=== PATIENT | female | born 1955 | race Caucasian/White ===

== ENCOUNTER → 2020-04-29 13:48 | Outpatient (CLI) | payer SELFPAY ==
[2020-04-29 14:06] LABS: Absolute Neutrophil Count 4.8 X10^3/uL (2.0-7.7); Basophil# 0.06 X10^3/uL; Basophil% 0.8 % (0-1); Eosinophil# 0.12 X10^3/uL; Eosinophils% 1.5 % (0-5); Hematocrit 40.1 % (37-47); Lymphocyte % 29.4 % (19-41); Mean Corp Hgb Conc 32.4 g/dL (32-36); Mean Corpuscular Hgb 30.4 pg (27.0-32.0); Mean Corpuscular Volume 93.9 fL (81-99); Mean Platelet Vol. 9.7 fl (6.2-12.0); Monocyte# 0.56 X10^3/uL; Monocyte% 7.2 % (0-10); NRBC Flagged by Analyzer 0 % (0-5); Neutrophil # 4.75 X10^3/uL (2.7-7.7); Neutrophil % 60.6 % (47-70); Platelet Count 200 K/mm3 (150-450); RBC Distribution Width CV 13.1 % (11.6-14.6); RBC Distribution Width SD 44.4 fl (35.1-43.9); Red Blood Count 4.27 M/mm3 (4.2-5.4); White Blood Count 7.8 K/mm3 (4.4-11.0)
[2020-04-29 14:23] LABS: ALB/GLOB Ratio 0.9 RATIO (0.9-2.4); AST(SGOT) 16 U/L (15-37); Alanine Aminotransfer ALT/SGPT 12 U/L (13-56); Albumin, Serum 3.5 g/dL (3.2-5.0); Alkaline Phosphatase 80 U/L (45-117); Anion Gap 6 (5-15); BUN 17 mg/dL (7-18); BUN/Creat Ratio 16.2 RATIO (10-20); Calcium,Total 8.8 mg/dL (8.5-10.1); Chloride 112 mmol/L (98-107); Creatinine, Serum 1.05 mg/dL (0.55-1.02); EST Glomerular Filtration Rate 56 mL/min (>60); Est Glom Filt Rate - Afr Amer 68 mL/min (>60); Globulin 3.7 g/dL (2.2-4.2); Glucose 85 mg/dL (74-106); Potassium 4.2 mmol/L (3.5-5.1); Protein, Total 7.2 g/dL (6.4-8.2); Sodium Level 140 mmol/L (136-145)
--- NOTE | 2020-04-29 14:55 | CT_ITS ---
STUDY: CT ABDOMEN AND PELVIS WITH CONTRAST REASON FOR EXAM: Female, 65 years old. Right kidney cancer. Status post nephrectomy. IVC filter. RADIATION DOSAGE (If Supplied By Facility): CTDIvol = ( 21.95 ) mGy, DLP = ( 3032.14 ) mGycm TECHNIQUE: Transaxial images were obtained from the dome of the diaphragm to the symphysis pubis without oral contrast. 75 ml of Isovue-370 contrast was administered. Sagittal and coronal images were reconstructed. Individualized dose optimization techniques were used for this CT. COMPARISON: None. FINDINGS: The visualized lung bases are clear. The visualized portions of the heart and pericardium are within normal limits. There are no calcified gallstones present. The liver is within normal limits. There are no suspicious hepatic lesions. The spleen is normal in size. The pancreas is within normal limits. The adrenal glands are within normal limits. The patient is status post right nephrectomy. There is no evidence of residual recurrent disease at the nephrectomy site. There are no left renal or ureteral stones. There is no left hydronephrosis. There are no left focal renal lesions. Normal visualized stomach. There is no bowel obstruction or inflammation. The appendix is visualized and appears normal. The aorta is normal in caliber. There is no abdominal or pelvic free air, free fluid, fluid collection or lymphadenopathy. There are no destructive osseous lesions. CT/Abdomen/Pelvis W IV Cont ONLY IMPRESSION: Status post right nephrectomy. No evidence of recurrent or metastatic disease in the abdomen or pelvis. Please note the provided history states IVC filter. However, there is no IVC filter in place on this examination. Electronically Signed: Jeremy Hendricks, at 20:06 EDT Tel , Service support ,
--- NOTE | 2020-04-29 14:55 | CT_ITS ---
We are attempting to reach an attending provider to discuss findings. An addendum with communication details will be sent when the communication is complete. STUDY: CT CHEST WITH CONTRAST REASON FOR EXAM: Female, 65 years old. Right kidney cancer. Status post nephrectomy. RADIATION DOSAGE (If Supplied By Facility): CTDIvol = ( 21.95 ) mGy, DLP = ( 3032.14 ) mGycm TECHNIQUE: Transaxial imaging was performed following intravenous administration of 75 ml of Isovue-370 contrast material. Coronal and sagittal reformatted images were created. Individualized dose optimization techniques were used for this CT. COMPARISON: None FINDINGS: There are no pulmonary infiltrates or pleural effusions. There are no pulmonary nodules or masses. There is no pneumothorax. There are segmental pulmonary emboli noted in the right lower lobe. The heart and pericardium are within normal limits. There is no thoracic lymphadenopathy. There is no evidence of thoracic aortic aneurysm. There are no destructive osseous lesions. CT/Chest WITH Contrast IMPRESSION: Segmental pulmonary emboli in the right lower lobe. Clear lungs. No thoracic lymphadenopathy. Please see the report for the CT of the abdomen and pelvis which is dictated separately. Electronically Signed: Jeremy Hendricks, at 20:01 EDT Tel , Service support ,
== END ==
PROVIDERS: PCP Family Medicine; Referring Provider Internal Medicine Hematology & Oncology; Visit Provider Internal Medicine Hematology & Oncology
DX: C64.1 Malignant neoplasm of right kidney, except renal pelvis (principal); D49.519 Neoplasm of unspecified behavior of unspecified kidney; D49.511 Neoplasm of unspecified behavior of right kidney; I82.220 Acute embolism and thrombosis of inferior vena cava
CPT/HCPCS: 36415; 71260; 74177; 80053; 85025; Q9967

== ENCOUNTER 2020-04-30 07:48 | Emergency (ER) | payer OTHER, SELFPAY ==
[2020-04-30 07:49] VITALS: BP 161/101; PULSE 72; RESP 18; TEMP 36.6; O2SAT 99; BMI 42.9
[2020-04-30 07:59] VITALS: O2SAT 100
[2020-04-30 08:00] VITALS: O2SAT 99
[2020-04-30 08:01] VITALS: BP 171/99; PULSE 87; RESP 19; TEMP 36.7; O2SAT 99
--- NOTE | 2020-04-30 08:11 | ED.VISSUMM ---
- ER Visit Summary Date of Service: 04/30/20 Chief Complaint: Pulmonary embolus History of Present Illness: The patient is a [address] Valencia and Dr. Wilcox. She reports that she was changing from her prior oncologist to [facility] to Dr. Valencia. She had CTs performed yesterday prior to her initial visit with Dr. Valencia. The CTA of the chest shows that she has a PE. Patient reports that she has a dull chest pain is 1 out of 10 currently and 3 out of 10 at worst. Nothing makes this better or worse. She denies any shortness of breath. No ankle swelling or calf pain. Review of systems: General: No fever, chills, cold sweats. Cardiovascular: No chest pain, palpitations. Respiratory: No cough, shortness of breath, dyspnea on exertion. Gastrointestinal: No abdominal pain, nausea, vomiting, diarrhea, melena, or hematochezia. Genitourinary: No dysuria, frequency, hematuria. Skin: No rash. Neuro: No headache, numbness, weakness. Physical Examination: Vitals: Stable. Afebrile. General: Well-nourished and well-developed. Head: Normocephalic atraumatic. Neck: Supple, no lymphadenopathy. No JVD. Nontender. Cardiovascular: Regular rate and rhythm. No murmurs. Respiratory: No respiratory distress. Clear to auscultation bilaterally. Abdominal: Soft, nontender, nondistended, normal bowel sounds. No guarding, rebound, or peritoneal signs. Back: Nontender. Extremities: Nontender, no edema. Skin: Normal color, no rash. Neurologic: Alert and oriented ?3. Cranial nerves II through XII are intact. Normal strength and sensation. Psych: Normal affect. Test Results: Coags show an INR of 1.0 and a PTT of 21.3. She had labs yesterday that were not repeated. Her CBC was normal. Her Chem-7 is marked for chloride 112 and creatinine 1.05. LFTs were marked for an ALT of 12. The CTA of her chest yesterday showed segmental pulmonary emboli in the right lower lobe with no evidence of dissection. CT abdomen pelvis show to be status post right nephrectomy with no recurrent or metastatic disease. These were not repeated either. Emergency Department Course and Treatment: Patient is resting comfortably. Her heart rate is in the 60s. Her pulse ox is 97% on room air. Her blood pressure is stable. She was given Eliquis p.o. and would like to go home. Treatment Plan: Patient was discussed with Dr. Petersen. She will be discharged on Eliquis and instructed to follow-up with her primary care physician in 3 to 5 days for another exam. Follow-up with Dr. Marcum within a week. Return to the emergency department for any worsening symptoms. Disposition: To home in improved and stable condition. Impression: 1. Pulmonary emboli. 2. History of renal cancer. This note was generated with [employer] dictation software. It may contain incorrect words, spelling, and punctuation that were not noted in review of the chart prior to signing ED Disposition - Plan for ED Patient: Disposition: Home or Assisted Living Instructions: Pulmonary Embolism Prescriptions: Apixaban [Eliquis] 5 mg PO BID #74 tab Prescription Printed Referrals: Mark Camarena MD [STAFF PHYSICIAN] - 3-5 Days
[2020-04-30] MEDS: APIXABAN 5 MG TABLET 10 MG PO (08:36)
[2020-04-30 08:49] LABS: Partial Thromboplast Time 21.3 Seconds (24.1-36.2)
[2020-04-30 08:54] VITALS: BP 162/78; PULSE 69; RESP 18; O2SAT 97
[2020-04-30 09:12] VITALS: BP 155/78; PULSE 71; RESP 18; O2SAT 99
== END 2020-04-30 09:27 | disposition home or self-care (01) ==
PROVIDERS: Emergency Provider Emergency Medicine; PCP Family Medicine
DX: I26.99 Other pulmonary embolism without acute cor pulmonale (principal); Z85.528 Personal history of other malignant neoplasm of kidney
CPT/HCPCS: 85610; 85730; 99283; A4216

== ENCOUNTER → 2020-05-13 16:05 | Outpatient (CLI) | payer SELFPAY ==
[2020-04-30 07:49] VITALS: BMI 42.9
--- NOTE | 2020-05-13 16:09 | BI_ITS ---
MAMMOGRAPHY - BILATERAL SCREENING REASON FOR EXAM: Female, 65 years old. Routine annual screening examination. PERTINENT HISTORY: Mother with breast cancer. Aunt with breast cancer. TECHNIQUE: Digital bilateral breast marc (3D mammographic acquisition) in the CC and MLO projections. 2-D mediolateral oblique (MLO) and craniocaudad (CC) views of both breasts were obtained. CAD: Full Field Digital Mammography with Computer Added Detection was performed. COMPARISON: No comparison mammograms available at this time. If any prior films become available, an addendum to this report can be generated. FINDINGS: Breast Composition: There are scattered areas of fibroglandular density. There are no dominant masses or suspicious calcifications. Small benign appearing bilateral axillary lymph nodes. No other significant abnormalities are identified. There has been no significant change since the prior study. BI/SCREEN MAMM (CAD) W/MARC BILAT IMPRESSION: Stable bilateral screening mammogram. Yearly follow-up mammogram recommended. (A) ASSESSMENT CATEGORY: BIRADS Category 2: Benign. A letter regarding these results will be sent to the patient by the facility within 30 days. Approximately 10% of breast cancers are not detected by mammography. A normal mammogram should not delay biopsy of a clinically suspicious abnormality. [id number] Electronically Signed: Gee Szymanski, at 8:34 EDT , Service support ,
== END ==
PROVIDERS: PCP Family Medicine; Referring Provider Internal Medicine Hematology & Oncology; Visit Provider Internal Medicine Hematology & Oncology
DX: Z12.31 Encounter for screening mammogram for malignant neoplasm of breast (principal); D49.511 Neoplasm of unspecified behavior of right kidney
CPT/HCPCS: 77063; 77067

== ENCOUNTER → 2020-08-31 12:50 | Outpatient (CLI) | payer SELFPAY ==
--- NOTE | 2020-08-31 12:58 | CDU_ITS ---
Reason For Study: Cerebrovascular insufficiency Rt. Velocities/BP Lt. Velocities/BP Prox CCA 86.5/21.3 cm/sec. Prox CCA 93.7/23.4 cm/sec. Mid CCA 98.2/26.5 cm/sec. Mid CCA 81.6/25.6 cm/sec. Dist CCA 64.3/22.6 cm/sec. Dist CCA 72.8/24.5 cm/sec. Prox ICA 64.3/21.3 cm/sec. Prox ICA 59.7/20.1 cm/sec. Mid ICA 94.3/34.3 cm/sec. Mid ICA 95.9/35.5 cm/sec. Dist ICA 78.6/31.7 cm/sec. Dist ICA 80.6/32.2 cm/sec. Rt. ICA/CCA = 1.1. Lt. ICA/CCA = 1.2. Prox ECA 70.8/9.5 cm/sec. Prox ECA 57.5/10.2 cm/sec. Rt. Vert. 57.5/21.2 cm/sec. Lt. Vert. 53.2/17.3 cm/sec. Right Extracranial There is homogeneous, smooth atherosclerotic plaque noted in the right common carotid artery. There is heterogeneous, irregular atherosclerotic plaque noted in the right internal carotid artery. There is intimal thickening but no significant atherosclerotic plaque noted in the right external carotid artery. Antegrade flow is noted in the right vertebral artery. Left Extracranial There is homogeneous, smooth atherosclerotic plaque noted in the left common carotid artery. There is heterogeneous, smooth atherosclerotic plaque noted in the left internal carotid artery. There is intimal thickening but no significant atherosclerotic plaque noted in the left external carotid artery. The left external carotid artery is not well visualized. Antegrade flow is noted in the left vertebral artery. Procedure Carotid Duplex [id number]. This is a Carotid Duplex examination using B-mode, color flow and specral Doppler. Exam performed in department. Interpretation Summary Mild (<50%) stenosis right extracranial internal carotid. Mild (<50%) stenosis left extracranial internal carotid. Flow within the vertebral arteries is antegrade bilaterally. Ordering Physician: Carissa Tobin Referring Physician: Carissa Tobin Performed By: Yessenia Dickson RVT
== END ==
PROVIDERS: PCP Family Medicine; Referring Provider Family Medicine; Visit Provider Family Medicine
DX: I67.81 Acute cerebrovascular insufficiency (principal)
CPT/HCPCS: 93880

== ENCOUNTER → 2020-10-28 14:33 | Outpatient (CLI) | payer SELFPAY ==
--- NOTE | 2020-10-28 14:41 | CT_ITS ---
STUDY: CT ABDOMEN AND PELVIS WITH CONTRAST REASON FOR EXAM: Female, 65 years old. FOLLOW UP RENAL CANCER AND PULMONARY EMBOLISM. RADIATION DOSAGE (If Supplied By Facility): CTDIvol = ( 24.73 ) mGy, DLP = ( 1418.38 ) mGycm TECHNIQUE: Transaxial images were obtained from the dome of the diaphragm to the symphysis pubis without oral contrast. IV 100mL Isovue-370 was administered. Sagittal and coronal images were reconstructed. Individualized dose optimization techniques were used for this CT. COMPARISON: Comparison is made with prior study dated 04/29/2020. FINDINGS: The visualized lung bases are unremarkable. The visualized portions of the heart are within normal limits. There is decreased attenuation of the liver consistent with steatosis. There are surgical clips in the gallbladder fossa consistent with a prior cholecystectomy. Normal spleen. Normal pancreas. Normal bilateral adrenal glands. The patient is status post right nephrectomy. Normal left kidney. There is a small hiatal hernia. Normal small intestine. Normal colon. The appendix is visualized and appears normal. There is scattered atherosclerotic calcification of the abdominal aorta, without a demonstrated aneurysm. Normal inferior vena cava. Normal retroperitoneum. Normal urinary bladder. There is a right-sided inguinal hernia containing adipose tissue. Normal osseous structures. CT/Abdomen/Pelvis WITH Contrast IMPRESSION: Status post right nephrectomy. Stable examination. Electronically Signed: Gee Szymanski, at 15:25 EST , Service support ,
--- NOTE | 2020-10-28 14:41 | CT_ITS ---
STUDY: CT CHEST WITH CONTRAST REASON FOR EXAM: Female, 65 years old. FOLLOW UP RENAL CANCER AND PULMONARY EMBOLISM. RADIATION DOSAGE (If Supplied By Facility): CTDIvol = ( 11.82 ) mGy, DLP = ( 508.33 ) mGycm TECHNIQUE: Transaxial imaging was performed following intravenous administration of IV 100mL Isovue-370. Multiplanar coronal and sagittal images were reformatted. Individualized dose optimization techniques were used for this CT. COMPARISON: Comparison is made with prior study dated 04/29/2020. FINDINGS: The lungs are normal. There is no demonstrated pleural abnormality. Normal heart and pericardium. Normal mediastinum. Normal hilar regions. Normal enhanced pulmonary arteries. Normal aorta arch and descending thoracic aorta. There are multi-level degenerative changes of the thoracic spine. Diffuse fatty infiltration of the liver. Minimally dilated esophagus. CT/Chest WITH Contrast IMPRESSION: No acute abnormality is seen. Stable examination. Electronically Signed: Gee Szymanski, at 15:23 EST , Service support ,
[2020-10-28 14:51] LABS: CREATININE FINGERSTICK 1.4 mg/dL (0.55-1.02)
== END ==
PROVIDERS: PCP Family Medicine; Referring Provider Internal Medicine Hematology & Oncology; Visit Provider Internal Medicine Hematology & Oncology
DX: D49.511 Neoplasm of unspecified behavior of right kidney (principal); I26.99 Other pulmonary embolism without acute cor pulmonale
CPT/HCPCS: 71260; 74177; Q9967

== ENCOUNTER 2020-11-12 15:47 | Observation (INO) | payer OTHER, SELFPAY ==
[2020-11-12] VITALS (12 sets, daily range): BP systolic 134–163; BP diastolic 78–103; PULSE 63–79; RESP 13–28; TEMP 35.9–36.8; O2SAT 97–100; BMI 39.8; BMI 40.1; BMI 39.0
[2020-11-12 16:11] LABS: Bedside Glucose 68 mg/dL (70-110)
--- NOTE | 2020-11-12 16:17 | EKG12_ITS ---
Test Reason : Blood Pressure : / mmHG Vent. Rate : 072 BPM Atrial Rate : 072 BPM P-R Int : 128 ms QRS Dur : 080 ms QT Int : 398 ms P-R-T Axes : 027 -12 036 degrees QTc Int : 435 ms Normal sinus rhythm Normal ECG Confirmed by LOR KING, AWILDA ([id number]), magazine editor SHEMAR VILLELA ([id number]) on 11/16/2020 10:54:13 AM Referred By: GLADIS Confirmed By:FABIANA HOROWITZ MD
--- NOTE | 2020-11-12 16:40 | CT_ITS ---
STUDY: CT BRAIN WITHOUT CONTRAST REASON FOR EXAM: Female, 65 years old. RIGHT ARM AND LEG PAIN. HEADACHE THAT COMES AND GOES. RADIATION DOSAGE (If Supplied By Facility): CTDIvol = ( ) mGy, DLP = ( ) mGycm TECHNIQUE: Transaxial CT imaging of the brain was performed without administration of intravenous contrast material. Individualized dose optimization techniques were used for this CT. COMPARISON: None. FINDINGS: Normal soft tissue structures. Normal calvarium. There is mild cerebral atrophy with widening of the extra-axial spaces and ventricular dilatation. Normal white matter tracts of the cerebral hemispheres. There are small punctate calcifications of the basal ganglia which are seen in the aging brain as a normal variant. Normal brainstem. Normal cerebellum. There is no intracranial hemorrhage. There are no findings of an acute ischemic infarction. Normal visualized paranasal sinuses. CT/Brain/Head without Contrast IMPRESSION: Chronic involutional changes of the brain. Electronically Signed: Fabian Horvath MD at 17:19 EST , Service support ,
--- NOTE | 2020-11-12 16:42 | RAD_ITS ---
STUDY: X-RAY CHEST REASON FOR EXAM: Female, 65 years old. r/o stroke. right arm and right leg do not feel right per pt. reports a headache that comes and goes. monday night had a near syncopal episode, denies dizzines now. TECHNIQUE: Single AP portable view of the chest. COMPARISON: CT of the chest dated October 28, 2020 FINDINGS: The lungs are clear and expanded. There is no demonstrated pleural abnormality. Normal size heart. Normal mediastinum and anushka. Normal visualized pulmonary arteries. There is atherosclerotic tortuosity of the aortic arch and descending thoracic aorta. There are diffuse degenerative changes of the visualized thoracic spine. Normal visualized ribs, clavicles, and shoulders. There is no demonstrated abnormality of the visualized soft tissue structures of the upper abdomen. RAD/Chest 1 View IMPRESSION: Degenerative changes, as described above. No demonstrated acute cardiopulmonary process. Electronically Signed: Fabian Horvath MD at 17:21 EST , Service support ,
[2020-11-12 16:51] LABS: Absolute Lymphocyte Count 1.74 X10^3/uL (0.83-4.51); Absolute Neutrophil Count 5.4 X10^3/uL (2.0-7.7); Basophil# 0.05 X10^3/uL; Basophil% 0.6 % (0-1); Eosinophil# 0.09 X10^3/uL; Eosinophils% 1.1 % (0-5); Hematocrit 42.4 % (37-47); Hemoglobin 13.8 g/dL (12.0-15.0); Lymphocyte # 1.74 X10^3/ul (4.0); Lymphocyte % 22.1 % (19-41); Mean Corp Hgb Conc 32.5 g/dL (32-36); Mean Corpuscular Hgb 30.7 pg (27.0-32.0); Mean Corpuscular Volume 94.2 fL (81-99); Monocyte# 0.53 X10^3/uL; Monocyte% 6.7 % (0-10); NRBC Flagged by Analyzer 0 % (0-5); Neutrophil # 5.42 X10^3/uL (2.7-7.7); Neutrophil % 68.9 % (47-70); Platelet Count 216 K/mm3 (150-450); RBC Distribution Width CV 12.5 % (11.6-14.6); RBC Distribution Width SD 43.4 fl (35.1-43.9); White Blood Count 7.9 K/mm3 (4.4-11.0)
[2020-11-12 17:02] LABS: Prothrombin Time (Protime)PT. 12.5 SECONDS (11.7-14.9)
[2020-11-12 17:07] LABS: Anion Gap 5 (5-15); BUN 18 mg/dL (7-18); BUN/Creat Ratio 16.5 RATIO (10-20); Calcium,Total 9.6 mg/dL (8.5-10.1); Chloride 111 mmol/L (98-107); Creatinine, Serum 1.09 mg/dL (0.55-1.02); EST Glomerular Filtration Rate 54 mL/min (>60); Est Glom Filt Rate - Afr Amer 65 mL/min (>60); Estimated Creatinine Clearance 41.24 ml/min; Glucose 88 mg/dL (74-106); Potassium 4.5 mmol/L (3.5-5.1); Sodium Level 140 mmol/L (136-145)
[2020-11-12 17:08] LABS: Partial Thromboplast Time 27.2 Seconds (24.1-36.2)
--- NOTE | 2020-11-12 18:34 | ED.DCSUM_ITS ---
- ER Visit Summary Date of Service: 11/12/20 Chief Complaint: Right arm and leg heaviness History of Present Illness: The patient is a 65 F presenting with right arm and leg heaviness. She states this started earlier today. She complains of intermittent heaviness in her right arm and right leg. She states on Monday she had an episode where she had near syncope. She did not pass out. The symptoms resolved. She then began having right arm and leg heaviness today. She has a mild intermittent headache. She denies fever. Denies other complaints. Physical Examination: Vitals are stable. Patient is afebrile. Alert no acute distress. HEENT exam is unremarkable. Neck is supple. Lungs are clear and equal bilaterally. Heart is regular rate and rhythm. Abdomen is soft nontender nondistended. Extremities are unremarkable. Skin is warm and dry. NIH 1: Sensation, normal strength Remainder of exam is unremarkable. Emergency Department Course and Treatment: Patient's onset of symptoms is unclear. Her NIH is 1 for decreased sensation on the right. EKG is sinus rate of 72 with no acute ischemic changes. CBC, chemistries unremarkable. INR 1.0. Troponin negative. Chest x-ray shows no acute process. CT head shows chronic changes. Repeat NIH is 0 in the ED. Discussed with hospitalist for observation. Disposition: Admission Impression: TIA This note was generated with [employer] dictation software. It may contain incorrect words, spelling, and punctuation that were not noted in review of the chart prior to signing ED Disposition - Plan for ED Patient: Referrals: Carissa Tobin MD [Primary Care Provider] -
--- NOTE | 2020-11-12 19:04 | HP.PCM_ITS ---
<Toshia Lange INNER DIAMETER GRINDER TOOL - Last Filed: 11/12/20 19:24> Problem List (1) TIA (transient ischemic attack) Status: Acute (2) History of pulmonary embolism Status: Chronic History of Present Illness Date of Admission: 11/12/20 Chief Complaint: Right arm and right leg heaviness. The patient is a 65 year old F who presents to the emergency room due to right arm and leg heaviness. She states this began this afternoon while she was sewing. She denies right-sided weakness. Denies vision changes, speech changes. Patient states she has had intermittent headaches recently. Also reports strange sensations in her head. She states she was seen by her primary care provider who ordered carotid ultrasounds which were reported to be normal. Patient states she was taken off of Eliquis a week ago. Patient states she was diagnosed with PE in April of this year and has been on Eliquis since that time. She had repeat CT of chest 10/28/2020 which was normal and she was taken off of Eliquis at that time. She states etiology of PE was unknown. Her other past medical history includes history of renal cancer status post nephrectomy. 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 Denies: Sinus Congestion, Sinus Drainage Cardiovascular: Denies: Chest Pain, Palpitations Respiratory: Denies: Cough, Shortness of breath at rest, Sputum production Gastrointestinal: Denies: Abdominal Pain, Nausea, Vomiting Genitourinary: Denies: Dysuria Musculoskeletal: Denies: Joint Pain, Joint Tenderness Skin: Reports: Dryness Neurological: Reports: - - Right upper extremity and right lower extremity heaviness. Denies: Focal weakness, Numbness, Tingling Psychiatric: Denies: Anxiety, Depression, Homicidal Ideations, Suicidal Ideations Hematologic/ Lymphatic: Denies: Easy Bruising, Easy Bleeding VTE Information - Inpt Only VTE Present on Admission: No VTE Mechan Device Prophylaxis: None VTE Pharm Prophylaxis ordered?: Yes Patient Problems: Active and Suspected Problems TIA (transient ischemic attack) (Acute) - Physical Exam Vitals/I&O's: Vital Signs Temp Pulse Resp BP Pulse Ox 98.2 F 71 19 H 157/97 H 97 11/12/20 19:00 11/12/20 19:00 11/12/20 19:00 11/12/20 19:00 11/12/20 19:00 Oxygen Delivery Method Room Air Weight: 219 lb 2.232 oz Body Mass Index (BMI) 40.1 Finger Stick Blood Glucose 68 General: Alert, Oriented x3, Cooperative HEENT: Atraumatic, PERRLA, EOMI, Normocephalic Neck: Supple, No JVD, Negative Carotid Bruits Lungs: Clear to auscultation, Normal air movement Cardiovascular: Regular rate, No murmurs Abdomen: Bowel Sounds Present, Soft, Non Tender Extremities: No clubbing, No cyanosis, No edema, Capillary Refill Less than 3 Seconds Skin: No rashes, No breakdown Musculoskeletal: No Tenderness to Palpation of Joints or Extremities Neurological: Cranial nerves II-XII grossly intact, Neuro grossly intact Psych/Mental Status: Normal Affect, Appropriate Laboratory Results 11/12/20 16:05: POC Glucose 68 L 11/12/20 16:30: WBC 7.9, RBC 4.50, Hgb 13.8, Hct 42.4, MCV 94.2, MCH 30.7, MCHC 32.5, RDW Std Deviation 43.4, RDW Coeff of Yamile[place] 12.5, Plt Count 216, MPV 10.0, Immature Gran % (Auto) 0.600, Neut % (Auto) 68.9, Lymph % (Auto) 22.1, [place] % ( Auto) 6.7, Eos % (Auto) 1.1, Baso % (Auto) 0.6, Absolute Neuts (auto) 5.4, Absolute Lymphs (auto) 1.74, Nucleated RBC % 0 11/12/20 16:30: PT 12.5, INR 1.0, APTT 27.2 11/12/20 16:30: Sodium 140, Potassium 4.5, Chloride 111 H, Carbon Dioxide 24.0, Anion Gap 5, BUN 18, Creatinine 1.09 H, Estim Creat Clear Calc 41.24, Est GFR (MDRD) Af Amer 65, Est GFR (MDRD) Non-Af 54 L, BUN/Creatinine Ratio 16.5, Glucose 88, Calcium 9.6, Troponin I < 0.015 Current Medications Labetalol HCl (Labetalol (Prefilled) 20 Mg/4 Ml) 20 mg IV X1 PRN PRN Reason: BLOOD PRESSURE Assessment/Plan All Active Problems TIA (transient ischemic attack) (Acute) 1. Probable TIA-brain CT unremarkable. Obtain MRI of brain, MRA of head and neck. PT/OT/ST. Aspirin, statin. Lipid panel in a.m. Check mag, TSH. If MRI abnormal, consider neurology consult and echo. Therapeutic Lovenox pending further work-up given history of PE with recent discontinuation of Eliquis. 2. History of PE- recently taken off Eliquis. Chest CT 10/28/2020 without PE. 3. History of renal carcinoma status post right nephrectomy DVT prophylaxis-Lovenox subcu This patient was seen by HAILEY Valentin under the supervision of Dr. Galicia. <August Galicia F - Last Filed: 11/12/20 21:03> History of Present Illness The patient is a 65 year old F [] Past Medical History Allergies No Known Allergies Allergy (Verified 11/12/20 15:48) - Physical Exam Vitals/I&O's: Vital Signs Temp Pulse Resp BP Pulse Ox 98.0 F 64 18 134/81 H 99 11/12/20 20:10 11/12/20 20:10 11/12/20 20:10 11/12/20 20:10 11/12/20 20:10 Oxygen Delivery Method Room Air Weight: 213 lb 6.519 oz Body Mass Index (BMI) 39.0 Finger Stick Blood Glucose 68 Laboratory Results 11/12/20 16:05: POC Glucose 68 L 11/12/20 16:30: WBC 7.9, RBC 4.50, Hgb 13.8, Hct 42.4, MCV 94.2, MCH 30.7, MCHC 32.5, RDW Std Deviation 43.4, RDW Coeff of Yamileth 12.5, Plt Count 216, MPV 10.0, Immature Gran % (Auto) 0.600, Neut % (Auto) 68.9, Lymph % (Auto) 22.1, [place] % (Auto) 6.7, Eos % (Auto) 1.1, Baso % (Auto) 0.6, Absolute Neuts (auto) 5.4, Absolute Lymphs (auto) 1.74, Nucleated RBC % 0 11/12/20 16:30: PT 12.5, INR 1.0, APTT 27.2 11/12/20 16:30: Sodium 140, Potassium 4.5, Chloride 111 H, Carbon Dioxide 24.0, Anion Gap 5, BUN 18, Creatinine 1.09 H, Estim Creat Clear Calc 41.24, Est GFR (MDRD) Af Amer 65, Est GFR (MDRD) Non-Af 54 L, BUN/Creatinine Ratio 16.5, Glucose 88, Calcium 9.6, Troponin I < 0.015 11/12/20 20:26: Magnesium Pending, Troponin I Pending, TSH Pending Current Medications Acetaminophen (Acetaminophen 325 Mg Tablet) 650 mg PO Q6H PRN PRN PRN Reason: Pain Score 1-10/Temp > 100.7 F Aspirin (Aspirin 81 Mg Tab.Chew) 81 mg PO DAILY@0800 [facility] Atorvastatin Calcium (Atorvastatin Calcium 80 Mg Tablet) 80 mg PO QHS [facility] Enoxaparin Sodium (Enoxaparin 100 Mg/Ml Syringe) 100 mg SC Q12@0600,1800 [facility] Ondansetron HCl (Ondansetron 4 Mg/2 Ml Vial) 4 mg IV Q8H PRN PRN PRN Reason: NAUSEA/VOMITING Sodium Chloride (0.9% Saline Lock 10 Ml Syringe) 10 - 40 ml IV UD PRN PRN Reason: SALINE FLUSH Addendum: Dr. Galicia I personally examined the patient and reviewed the chart. I agree with the above. 65-year-old female presents from home with an on sensation in her right upper and lower extremities. She says that they just felt heavy but denied any specific weakness. She states that at the same time she also had an odd sensation in her head. All of which has resolved and her physical exam is normal. Will proceed with a TIA work-up and place her on aspirin and statin. Will obtain an MRI and MRA of her head and neck. We will plan for an [facility] neurology consult if those tests are abnormal. Of note she was also recently taken off of Eliquis, she is followed up as an outpatient with [facility] oncology, she has a history of renal cell carcinoma and a PE in April. Is not unreasonable to keep her off of anticoagulation but she just stopped anticoagulation about a week ago, will likely need outpatient follow-up and will try to get records in the morning from the [facility] about any outpatient tests to determine the cause or source of her PE. She denies any chest pain or shortness of breath therefore I do not think that she would warrant a CT of the chest especially since she just had one to determine whether or not she could be taken off of anticoagulation about a week and a half ago. OBSV E&M: 57772 Initial observation care L2
--- NOTE | 2020-11-12 19:58 | PCS.PANDOC ---
PANDEMIC DOCUMENTATION INITIATED: Date: 11/12/20 Time: 1944
[2020-11-12 21:13] LABS: Magnesium 2.1 mg/dL (1.6-2.6); Thyroid Stim Hormone (TSH) 3.29 uIU/mL (0.358-3.74)
[2020-11-12] MEDS: Enoxaparin 100 MG/ML Syringe SC (21:45)
[2020-11-12] MEDS: Atorvastatin Calcium 80 MG Tablet PO (21:45)
[2020-11-13] VITALS (7 sets, daily range): BP systolic 106–116; BP diastolic 64–75; PULSE 55–82; RESP 14–18; TEMP 36.6–36.8; O2SAT 96–98
[2020-11-13 06:22] LABS: Cholesterol 201 mg/dL (200); High Density Lipoprotein 59 mg/dL; Triglycerides 91 mg/dL; Very Low Density Lipoprotein 18 mg/dL (5-40)
[2020-11-13] MEDS: Enoxaparin 100 MG/ML Syringe SC (06:45)
[2020-11-13] MEDS: Aspirin 81 MG TAB.CHEW PO (08:18)
--- NOTE | 2020-11-13 10:00 | MRI_ITS ---
STUDY: MRA OF THE HEAD WITHOUT CONTRAST REASON FOR EXAM: Female, 65 years old. Abnormal sensations RIGHT arm and leg TECHNIQUE: 3-D [id number] (TOF) imaging was performed with MIPs. The study was performed unenhanced. COMPARISON: None. FINDINGS: Normal bilateral petrous carotid arteries. Normal right cavernous carotid artery with a normal supraclinoid bifurcation. Normal left cavernous carotid artery with a normal supraclinoid bifurcation. Normal right A1 segments of the anterior cerebral artery. Normal left A1 segments of the anterior cerebral artery. Normal intact anterior communicating artery (ACOM). Normal bilateral A2 segments of the anterior cerebral arteries. Normal right M1 and M2 segments of the middle cerebral arteries, with a normal M1 bifurcation. Normal left M1 and M2 segments of the middle cerebral arteries, with a normal M1 bifurcation. Normal right posterior communicating artery (PCOM). Normal left posterior communicating artery (PCOM). Normal bilateral vertebral arteries. Normal basilar artery with a normal basilar bifurcation. The visualized bilateral superior cerebellar (SCA) arteries are normal. Normal bilateral P1, P2 and visualized P3 segments of the posterior cerebral arteries. There is no demonstrated aneurysm of the point lay ira of [place]. There is no major vessel occlusion or hemodynamically significant stenosis. There is no demonstrated abnormality of the visualized brain. MRI/MRA Head ONLY without Contrast IMPRESSION: Normal MRA of the head Electronically Signed: Wilber Schmid MD at 11:16 EST Tel , Service support ,
--- NOTE | 2020-11-13 10:00 | MRI_ITS ---
STUDY: MRI BRAIN WITHOUT CONTRAST REASON FOR EXAM: Female, 65 years old. Abnormal sensations RIGHT arm and leg TECHNIQUE: Standardized multiplanar fat and water weighted pulse sequences were obtained. COMPARISON: CT 11/12/2020 FINDINGS: Normal size of the ventricles and extra-axial spaces for the patient''s age. Normal white matter tracts of the supratentorial brain. There is no evidence for recent intracranial ischemia or other cause of cytotoxic edema on diffusion weighted imaging (DWI). Normal T2* images of the brain without demonstrated susceptibility artifact. There is no demonstrated hemosiderin stain. Normal bilateral basal ganglia. Normal thalami. There is no extra-axial fluid accumulation. Normal flow voids within the major intracranial circulation suggesting patency by spin echo criteria. Normal sella turcica, pituitary gland, infundibular stalk, optic chiasm and hypothalamus. Normal tectal plate and pineal gland. Normal midbrain, jim and medulla. Normal cerebellum. Normal basal cisterns. Normal bilateral temporal bones. Normal bilateral internal auditory canals. No demonstrated orbital abnormality, within the constraints of a routine brain study. Normal visualized paranasal sinuses. Normal calvarium and skull base. Normal visualized soft tissue structures. Normal visualized upper cervical spine. MRI/Brain without Contrast IMPRESSION: Normal unenhanced MRI of the brain. Electronically Signed: Wilber Schmid MD at 11:14 EST Tel , Service support ,
--- NOTE | 2020-11-13 10:00 | MRI_ITS ---
STUDY: MRA NECK WITHOUT CONTRAST REASON FOR EXAM: Female, 65 years old. Abnormal sensations RIGHT arm and leg TECHNIQUE: Source images were obtained, MIPs were performed. The study was performed unenhanced. COMPARISON: None. FINDINGS: RIGHT CAROTID ARTERIES: Normal right common carotid artery (CCA). Normal right common carotid bulb. Normal origin of the right internal carotid (ICA) artery without a hemodynamically significant stenosis. Normal visualized cervical portion of the right internal carotid artery. Normal origin of the right external carotid artery (ECA). LEFT CAROTID ARTERIES: Normal left common carotid artery (CCA). Normal left common carotid bulb. Normal origin of the left internal carotid (ICA) artery without a hemodynamically significant stenosis. Normal visualized cervical portion of the left internal carotid artery. Normal origin of the left external carotid artery (ECA). VERTEBRAL ARTERIES: Normal antegrade flow within the bilateral vertebral artery without a hemodynamically significant stenosis. MRI/MRA Neck without Contrast IMPRESSION: Normal bilateral cervical carotid and vertebral arteries. Electronically Signed: Wilber Schmid MD at 11:17 EST Tel , Service support ,
--- NOTE | 2020-11-13 12:54 | TELEMED_ITS ---
[facility] Telemed has confirmed receipt of a request for visit. This document confirms receipt of the order initiating the consult. To find the results of the consultation, please view the patient's reports for the scanned Telemed Consult.
--- NOTE | 2020-11-13 12:55 | CASEMGMT ---
SW completed a PHQ 9 with patient as she had a TIA. She scored a 0. She denies any need for counseling resources. Patient is self pay. DAMIEN asked patient how she is doing affording her medication. She said she has been fine paying for it. Ileana HERRON MSW
--- NOTE | 2020-11-13 15:06 | DCINST_ITS ---
- Discharge Diagnoses Current Active Problems: Current Active and Chronic Problems TIA (transient ischemic attack) (Acute) History of pulmonary embolism (Chronic) You will use the following diet at home:: No restrictions Discharge Activity: Return to Normal Activity Call your doctor if you observe: Shortness of breath, Dizziness, Fainting spells, Chest pain Allergies/Adverse Reactions: Allergies No Known Allergies Allergy (Verified 11/12/20 15:48) Medications to take at Discharge Apple Cider Vinegar 30 ml PO DAILY 11/12/20 Cholecalciferol (Vitamin D3) [Vitamin D3] 400 unit PO DAILY 11/12/20 [place]-3 Fatty Acids/Fish Oil [Fish Oil 1,000 mg Capsule] 2 cap PO DAILY 11/12/20 Aspirin E.C. [Ecotrin] 81 mg PO DAILY@0800 #30 tab 11/13/20 Atorvastatin Calcium 20 mg PO QHS #30 tab 11/13/20 The following prescriptions were given: Atorvastatin Calcium 20 mg PO QHS #30 tab Transmission Status: Received by [id number] Aspirin E.C. [Ecotrin] 81 mg PO DAILY@0800 #30 tab Transmission Status: Received by [id number] Orders to be completed after discharge: 30-Day Event [facility] [[facility]] Location: None Selected Primary Care Physician: Carissa Tobin MD [Primary Care Provider] - Please follow up with your Primary Care Physician in: 1 Week Test Results: Test results from this visit will be discussed in further detail at your follow- up appointment, if applicable. Please Follow Up With: Jj Bear MD When: 4-6 Weeks Proposed Discharge Date: 11/13/20
--- NOTE | 2020-11-13 15:07 | PCM.DC.SUM ---
<Toshia Lange MECHANICAL PRESS OPERATOR - Last Filed: 11/13/20 15:33> Discharge Date and Diagnosis - Problem List Patient Problems: Active and Suspected Problems TIA (transient ischemic attack) (Acute) Date of Admission: 11/12/20 Date of Discharge: 11/13/20 - Primary Discharge Diagnosis Acute Problems: Active Problems 1. Probable TIA 2. History of PE 3. History of renal carcinoma status post right nephrectomy - Secondary Discharge Diagnosis Chronic Problems: Chronic Problems History of pulmonary embolism (Chronic) Hospital Course and Treatment Imaging Results: Diagnostic Data Brain CT 11/12/20 16:40 IMPRESSION: Chronic involutional changes of the brain. Electronically Signed: Fabian Horvath MD at 17:19 EST , Service support , Chest X-Ray 11/12/20 16:42 IMPRESSION: Degenerative changes, as described above. No demonstrated acute cardiopulmonary process. Electronically Signed: Fabian Horvath MD at 17:21 EST , Service support , Brain MRI 11/13/20 10:00 IMPRESSION: Normal unenhanced MRI of the brain. Electronically Signed: Wilber Schmid MD at 11:14 EST Tel , Service support , Head MRA 11/13/20 10:00 IMPRESSION: Normal MRA of the head Electronically Signed: Wilber Schmid MD at 11:16 EST Tel , Service support , Neck MRA 11/13/20 10:00 IMPRESSION: Normal bilateral cervical carotid and vertebral arteries. Electronically Signed: Wilber Schmid MD at 11:17 EST Tel , Service support , Operations: None Procedures: None Summary of Care Provided: The patient is a 65 year old F admitted 11/12/2020 due to right arm and right leg heaviness. 1. Probable TIA-brain CT unremarkable. MRI of brain, MRA of head and neck unremarkable, negative for CVA. Plan for 30-day event monitor at discharge. Aspirin, statin. Follow-up with neurology as outpatient. SOC phone consult pending at discharge and will notify patient if any additional recommendations. 2. History of PE- recently taken off Eliquis. Chest CT 10/28/2020 without PE. 3. History of renal carcinoma status post right nephrectomy General: Alert, Oriented x3, Cooperative HEENT: Atraumatic, PERRLA, EOMI, Normocephalic Neck: Supple, No JVD, Negative Carotid Bruits Lungs: Clear to auscultation, Normal air movement Cardiovascular: Regular rate, No murmurs Abdomen: Bowel Sounds Present, Soft, Non Tender Extremities: No clubbing, No cyanosis, No edema, Capillary Refill Less than 3 Seconds Skin: No rashes, No breakdown Musculoskeletal: No Tenderness to Palpation of Joints or Extremities Neurological: Cranial nerves II-XII grossly intact, Neuro grossly intact Psych/Mental Status: Normal Affect, Appropriate Patient seen and examined prior to discharge. Physical assessment as noted above. Patient is stable for discharge with follow up recommendations as noted above. This patient was seen by HAILEY Valentin under the supervision of Dr. Hay. Patient Problems: Active and Suspected Problems TIA (transient ischemic attack) (Acute) - Physical Exam Vitals/I&O's: Vital Signs Temp Pulse Resp BP Pulse Ox 97.9 F 70 14 114/73 96 11/13/20 14:39 11/13/20 14:39 11/13/20 14:39 11/13/20 14:39 11/13/20 14:39 Oxygen Delivery Method Room Air Weight: 213 lb 6.519 oz Body Mass Index (BMI) 39.0 Finger Stick Blood Glucose 68 Laboratory Results 11/12/20 16:05: POC Glucose 68 L 11/12/20 16:30: WBC 7.9, RBC 4.50, Hgb 13.8, Hct 42.4, MCV 94.2, MCH 30.7, MCHC 32.5, RDW Std Deviation 43.4, RDW Coeff of Yamileth 12.5, Plt Count 216, MPV 10.0, Immature Gran % (Auto) 0.600, Neut % (Auto) 68.9, Lymph % (Auto) 22.1, Shelby % (Auto) 6.7, Eos % (Auto) 1.1, Baso % (Auto) 0.6, Absolute Neuts (auto) 5.4, Absolute Lymphs (auto) 1.74, Nucleated RBC % 0 11/12/20 16:30: PT 12.5, INR 1.0, APTT 27.2 11/12/20 16:30: Sodium 140, Potassium 4.5, Chloride 111 H, Carbon Dioxide 24.0, Anion Gap 5, BUN 18, Creatinine 1.09 H, Estim Creat Clear Calc 41.24, Est GFR (MDRD) Af Amer 65, Est GFR (MDRD) Non-Af 54 L, BUN/Creatinine Ratio 16.5, Glucose 88, Calcium 9.6, Troponin I < 0.015 11/12/20 20:26: Magnesium 2.1, Troponin I < 0.015, TSH 3.29 11/13/20 05:15: Triglycerides 91, Cholesterol 201 H, LDL Cholesterol 124, VLDL Cholesterol 18, HDL Cholesterol 59 Current Medications Acetaminophen (Acetaminophen 325 Mg Tablet) 650 mg PO Q6H PRN PRN PRN Reason: Pain Score 1-10/Temp > 100.7 F Aspirin (Aspirin 81 Mg Tab.Chew) 81 mg PO DAILY@0800 [facility] Last Admin: 11/13/20 08:18 Dose: 81 mg Documented by: Atorvastatin Calcium (Atorvastatin Calcium 80 Mg Tablet) 80 mg PO QHS [facility] Last Admin: 11/12/20 21:45 Dose: 80 mg Documented by: Enoxaparin Sodium (Enoxaparin 100 Mg/Ml Syringe) 100 mg SC Q12@0600,1800 [facility] Last Admin: 11/13/20 06:45 Dose: 100 mg Documented by: Ondansetron HCl (Ondansetron 4 Mg/2 Ml Vial) 4 mg IV Q8H PRN PRN PRN Reason: NAUSEA/VOMITING Sodium Chloride (0.9% Saline Lock 10 Ml Syringe) 10 - 40 ml IV UD PRN PRN Reason: SALINE FLUSH Discharge Diet: No Restrictions Discharge Activity: Return to Normal Activity Call your doctor if you observe: Shortness of breath, Dizziness, Fainting spells, Chest pain Home Medications: Medications to take at Discharge Apple Cider Vinegar 30 ml PO DAILY 11/12/20 Cholecalciferol (Vitamin D3) [Vitamin D3] 400 unit PO DAILY 11/12/20 [place]-3 Fatty Acids/Fish Oil [Fish Oil 1,000 mg Capsule] 2 cap PO DAILY 11/12/20 Aspirin E.C. [Ecotrin] 81 mg PO DAILY@0800 #30 tab 11/13/20 Atorvastatin Calcium 20 mg PO QHS #30 tab 11/13/20 Following Prescriptions Were Given to Patient: Atorvastatin Calcium 20 mg PO QHS #30 tab Transmission Status: Received by [id number] Aspirin E.C. [Ecotrin] 81 mg PO DAILY@0800 #30 tab Transmission Status: Received by [id number] Other Amb Orders: 30-Day Event Recorder [[employer]] Location: None Selected Primary Care Physician: Carissa Tobin MD [Primary Care Provider] - Please follow up with your Primary Care Physician in: 1 Week Please Follow Up With: Jj Bear MD When: 4-6 Weeks Disposition: Home Minutes spent on discharge:: 35 Patient Condition:: Stable Medical Necessity - Tobacco Use Smoking Status: Never smoker Tobacco Use: Non-smoker Meaningful Use Info Meaningful Use Diagnoses (Choose all that apply): None applicable <Deb Hay - Last Filed: 11/13/20 22:03> Discharge Date and Diagnosis - Primary Discharge Diagnosis Acute Problems: Active Problems TIA (transient ischemic attack) (Acute) - Secondary Discharge Diagnosis Chronic Problems: Chronic Problems History of pulmonary embolism (Chronic) Hospital Course and Treatment Summary of Care Provided: Patient seen by Toshia HART under my supervision The patient is a 65 year old F with a PMH as outlined who was admitted with a complaint of right arm and right leg weakness. She was admitted and managed for probable TIA. CT of the brain was unrearkable. MRI of the brain and MRA of the head and neck were also negative for stroke. Patient had a history of PE and her anticoagulant had been stopped 2 weeks prior to her coming in. Patient didnt have a history of Afib, so there wasnt a reason to resume her afib. SOC neurology was consulted; neurology agreed with low dose aspirin and statin, and for her to follow up with neurology on outpatient basis to determine if she needed any additional workup. Patient remained stable, and plan was for her to be discharged on a 30 day event monitor. She is to continue aspirin and statin, and is to follow up with her PCP and neurology on outpatient basis. Patient seen and examined prior to discharge. She felt well and had no complaints. She tells me that this right arm and right leg heaviness is not new, and has been episodic for several months. Review of sytems is otherwise negative. She has remained hemodynamically stable. O/E: Vital Signs Temp Pulse Resp BP Pulse Ox 97.9 F 70 14 114/73 96 11/13/20 14:39 11/13/20 14:39 11/13/20 14:39 11/13/20 14:39 11/13/20 14:39 [] General: Alert, Oriented x3, Cooperative HEENT: Atraumatic, PERRLA, EOMI, Normocephalic Neck: Supple, No JVD, Negative Carotid Bruits Lungs: Clear to auscultation, Normal air movement Cardiovascular: Regular rate, No murmurs Abdomen: Bowel Sounds Present, Soft, Non Tender Extremities: No clubbing, No cyanosis, No edema, Capillary Refill Less than 3 Seconds Skin: No rashes, No breakdown Musculoskeletal: No Tenderness to Palpation of Joints or Extremities Neurological: Cranial nerves II-XII grossly intact, Neuro grossly intact Psych/Mental Status: Normal Affect, Appropriate Patient is to follow up with her PCP and was referred to neurology on outpatient basis. Rest as per Toshia Lange MECHANICAL PRESS OPERATOR-C's note, which I have reviewed and endorsed. - Physical Exam Vitals/I&O's: Vital Signs Temp Pulse Resp BP Pulse Ox 97.9 F 70 14 114/73 96 11/13/20 14:39 11/13/20 14:39 11/13/20 14:39 11/13/20 14:39 11/13/20 14:39 Oxygen Delivery Method Room Air Weight: 213 lb 6.519 oz Body Mass Index (BMI) 39.0 Finger Stick Blood Glucose 68 Laboratory Results 11/13/20 05:15: Triglycerides 91, Cholesterol 201 H, LDL Cholesterol 124, VLDL Cholesterol 18, HDL Cholesterol 59 OBSV E&M: [id number] Observation care discharge
== END 2020-11-13 15:06 | disposition home or self-care (01) ==
LOC: ED 16:36 → PCU 19:22
PROVIDERS: Admitting Provider Nurse Practitioner Family; Emergency Provider Emergency Medicine; PCP Family Medicine; Visit Provider Student in an Organized Health Care Education/Training Program
DX: G45.9 Transient cerebral ischemic attack, unspecified (principal); Z86.711 Personal history of pulmonary embolism; Z85.528 Personal history of other malignant neoplasm of kidney; Z90.5 Acquired absence of kidney; Z79.82 Long term (current) use of aspirin; R29.701 NIHSS score 1; R55 Syncope and collapse
CPT/HCPCS: 36415; 70450; 70544; 70547; 70551; 71045; 80048; 80061; 82962; 83735; 84443; 84484; 85025; 85610; 85730; 92507; 93005; 96372; 97162; 97166; 99218; 99285; A4216; G0378

== ENCOUNTER 2021-03-26 10:13 | Emergency (ER) | payer MEDICARE, OTHER, SELFPAY ==
[2020-11-12 19:23] VITALS: BMI 39.0
[2021-03-26 10:14] VITALS: BP 158/85; PULSE 75; RESP 20; TEMP 36.6; O2SAT 99; BMI 37.6
--- NOTE | 2021-03-26 10:36 | EKG12_ITS ---
Test Reason : CP/ABD PAIN Blood Pressure : / mmHG Vent. Rate : 074 BPM Atrial Rate : 074 BPM P-R Int : 138 ms QRS Dur : 084 ms QT Int : 374 ms P-R-T Axes : 059 008 045 degrees QTc Int : 415 ms Normal sinus rhythm Normal ECG Confirmed by TERRY KING, MAYITO ([id number]), associate entertainment editor SHEMAR VILLELA ([id number]) on 03/29/2021 1:31:12 PM Referred By: KAILEY/NADINE Confirmed By:MAYITO STEWART MD
--- NOTE | 2021-03-26 10:38 | EDS_ITS ---
HPI History of Present Illness Chief Complaint: Abd Pain Detail of Chief Complaint: Presents to the emergency department with complaint of chest pain and abdom Informant: patient Narrative Narrative: Patient states that last evening she had an episode of chest discomfort that lasted about a half an hour. She describes a dull all achy pressure in the center of her chest that radiated to her arm and jaw. Patient felt little short of breath with it. She denied nausea or vomiting with it she denied diaphoresis. The discomfort eventually resolved. This morning she had lower abdominal discomfort intermittent sharp stabbing pains and presents for evaluation. 2 days ago patient started on medication for anxiety. She feels like the chest pain that she was having was different than her anxiety. She does not have a heart history. She is never had a stress test or heart catheterization. She denies recent travel or surgery. She denies history of PE or DVT. Patient denies urinary symptoms. She denies fever. She did have an upper respiratory infection about a month ago but she was never tested for Covid and has not had Covid. Patient has not had the Covid vaccine. [facility] Medical History (Updated 03/26/21 @ 14:[address] Stephanie Cardenas, ) Anxiety FHx: kidney cancer Home Medications Apple Cider Vinegar 30 ml PO DAILY 11/12/20 [History Last Taken 11/12/20] cholecalciferol (vitamin D3) 400 unit PO DAILY 11/12/20 [History Last Taken 11/12/20] omega-3 fatty acids-fish oil 2 cap PO DAILY 11/12/20 [History Last Taken 11/12/20] aspirin 81 mg PO DAILY@0800 #30 tab 11/13/20 [Rx Last Taken Unknown] atorvastatin 20 mg PO QHS #30 tab 11/13/20 [Rx Last Taken Unknown] sulfamethoxazole-trimethoprim [Bactrim DS] 1 tab PO BID #6 tab 03/26/21 [Rx Last Taken Unknown] Allergy/AdvReac Type Severity Reaction Status Date / Time No Known Allergies Allergy Verified 03/26/21 10:14 Social History Smoking Status: Never smoker ROS ROS ED Constitutional Constitutional ED: Reports systems reviewed and no addt'l complaints, except as documented; Denies body ache(s), change in weight or chills Eyes Eyes: Denies acute decrease in peripheral vision, change in vision, double vision or loss of vision ENT ENT ED: Reports none and ear pain; Denies lip swelling, loss taste/smell, neck pain, otalgia or sore throat Cardiovascular Cardiovascular: Reports none; Denies abdominal pain, chest pain with activity, l eg edema, lightheadedness, palpitations, rapid heart rate or syncope Respiratory/Chest Respiratory/Chest: Reports none; Denies change in mental status, dry cough, dyspnea, hemoptysis, shortness of breath at rest or shortness of breath with exertion Gastrointestinal Gastrointestinal: Reports none and abdominal pain; Denies change in stool character, diarrhea, hematemesis, hematochezia, melena, rectal bleeding or vomiting Genitourinary Genitourinary ED: Reports none; Denies abdominal discomfort, anuria, dysuria, genital pain or polyuria Musculoskeletal Musculoskeletal: Reports none; Denies arthralgias, back pain, difficulty walking, extremity pain, muscle weakness or myalgias Integumentary Reports none; Denies abscess or rash Neurologic Neurologic: Reports none; Denies abnormal gait, confusion, focal weakness, frequent falls, headache(s), loss of vision, numbness, paresthesias, radicular pain, vertigo or weakness Psychiatric Psychiatric: Reports systems reviewed and no addt'l complaints, except as documented and none; Denies behavioral changes, confusion, difficulty concentrating, hallucinations, suicidal ideation, tactile hallucinations or visual hallucinations Endocrine Endocrinology: Denies none, cold intolerance, excessive sweating, fatigue or heat intolerance Hematologic/Lymphatic Hematologic/Lymphatic: Reports none; Denies anemia, easy bleeding or easy bruising Allergic/Immunologic Allergic/Immunologic ED: Denies as per HPI, none, lip swelling, mouth swelling, throat swelling, tongue swelling or hives EXAM Physical Exam Const Vital Signs: 03/26/21 10:14 03/26/21 11:24 03/26/21 13:12 Temperature 97.9 F Temperature Source Temporal Pulse Rate 75 67 58 L Respiratory Rate 20 H 14 20 H Blood Pressure 158/85 H 127/76 H 113/75 Blood Pressure Mean 109 93 87 Pulse Ox 99 97 95 Oxygen Delivery Method Room Air Room Air Room Air Positive well nourished and well developed General Appearance ED: well developed and NAD HEENT Reports TM's clear and moist mucous membranes normocephalic and atraumatic; Negative for trauma or tenderness Tympanic Membrane ED: Yes TM's clear Eyes PERRL and EOMs intact bilaterally General Eye ED: Negative for pale conjunctiva or scleral icterus Neck no lymphadenopathy, supple and no JVD General: Negative for tenderness Chest Wall inspection of chest normal and palpation of chest normal Chest: Negative for tenderness Resp normal respiratory effort and clear to auscultation bilaterally Effort and Inspection: Negative for respiratory distress or pain with movement Auscultation: Negative for rhonchi, wheezes or diminished lung sounds Cardio regular rate, regular rhythm, S1 normal heart sound, S2 normal heart sound and no murmurs Peripheral Pulses: pulses 2+ throughout GI normal to inspection, nondistended, normoactive bowel sounds, soft to palpation, non-tender, non-distended and no masses Back/Spine no CVA tenderness and no thoracic nor lumbar tenderness Extremity normal to inspection General Extremety ED: Negative for edema General Extremity: Negative for edema Neuro oriented x3, CN's II-XII intact bilaterally, no sensory deficits noted and gait normal Sensorium / Orientation: awake, alert, oriented to person, oriented to place and oriented to time Motor Exam: strength 5/5 throughout and strength abnormal Psych mental status grossly normal Skin no rashes or lesions noted and no wounds MDM MDM MDM Narrative Medical decision making narrative: Patient has a heart score of 3. Her work-up in the department is unremarkable and she has been chest pain-free since yesterday. Etiology of her pain is unclear. We discussed potentially admission for stress testing but she would prefer to follow-up as an outpatient. She understands I cannot completely rule out cardiac etiology of her chest discomfort. She was also recently started on medication for anxiety which is in the differential. She is advised to return if worsening pain, increasing shortness of breath, or condition should worsen anyway. Patient will be treated with Bactrim for 3 days for suspected early UTI. Urine culture was sent. Lab Data Attestation: I reviewed the patient's lab results. Labs: Laboratory Results - last 24 hr 03/26/21 03/26/21 03/26/21 10:00 10:00 10:20 WBC 7.4 RBC 4.82 Hgb 14.9 Hct 46.1 MCV 95.6 MCH 30.9 MCHC 32.3 RDW Std Deviation 45.2 H RDW Coeff of Yamileth 13.0 Plt Count 246 MPV 10.0 Immature Gran % (Auto) 0.500 Neut % (Auto) 76.2 H Lymph % (Auto) 16.6 L Bartholomew % (Auto) 5.9 Eos % (Auto) 0.3 Baso % (Auto) 0.5 Absolute Neuts (auto) 5.6 Absolute Lymphs (auto) 1.23 Nucleated RBC % 0 D-Dimer Quant (PE/DVT) Sodium 139 Potassium 4.0 Chloride 108 H Carbon Dioxide 25.0 Anion Gap 6 BUN 10 Creatinine 1.11 H Estim Creat Clear Calc 38.64 Est GFR (MDRD) Af Amer 63 Est GFR (MDRD) Non-Af 52 L BUN/Creatinine Ratio 9.0 L Glucose 144 H Calcium 9.1 Total Bilirubin 0.40 AST 13 L ALT 11 L Alkaline Phosphatase 97 Troponin I < 0.015 Total Protein 7.2 Albumin 3.6 Globulin 3.6 Albumin/Globulin Ratio 1.0 Lipase 167 Urine Color Urine Clarity Urine pH Ur Specific [place] Urine Protein Urine Glucose (UA) Urine Ketones Urine Occult Blood Urine Nitrite Urine Bilirubin Urine Urobilinogen Ur Leukocyte Esterase Urine RBC Urine WBC Ur Squamous Epith Cells Urine Bacteria Urine Mucus 03/26/21 03/26/21 11:50 13:58 WBC RBC Hgb Hct MCV MCH MCHC RDW Std Deviation RDW Coeff of Yamileth Plt Count MPV Immature Gran % (Auto) Neut % (Auto) Lymph % (Auto) Bartholomew % (Auto) Eos % (Auto) Baso % (Auto) Absolute Neuts (auto) Absolute Lymphs (auto) Nucleated RBC % D-Dimer Quant (PE/DVT) 0.34 Sodium Potassium Chloride Carbon Dioxide Anion Gap BUN Creatinine Estim Creat Clear Calc Est GFR (MDRD) Af Amer Est GFR (MDRD) Non-Af BUN/Creatinine Ratio Glucose Calcium Total Bilirubin AST ALT Alkaline Phosphatase Troponin I Total Protein Albumin Globulin Albumin/Globulin Ratio Lipase Urine Color Yellow Urine Clarity Clear Urine pH 7.0 Ur Specific [place] 1.010 Urine Protein Negative Urine Glucose (UA) Normal Urine Ketones Negative Urine Occult Blood 25 H Urine Nitrite Positive H Urine Bilirubin Negative Urine Urobilinogen Normal Ur Leukocyte Esterase 500 H Urine RBC 0-5 SEEN Urine WBC 5-10 SEEN Ur Squamous Epith Cells 0-5 SEEN Urine Bacteria 2+ Urine Mucus 0 SEEN Radiography Diagnostic Testing: Radiology Impression Chest X-Ray 03/26/21 10:57 IMPRESSION: Stable examination. No acute abnormality is seen. Electronically Signed: Gee Szymanski MD at 11:30 EDT , Service support , Abdomen/Pelvis CT 03/26/21 11:04 IMPRESSION: Status post right nephrectomy. Enlarged fibroid uterus. Electronically Signed: Gee Szymanski MD at 12:16 EDT , Service support , EKG Initial EKG: Attestation: I personally reviewed and interpreted this EKG as follows: Comments: Sinus rhythm with a ventricular rate of 74 bpm with no acute ST segment changes Discharge Plan Triage Chief Complaint: Abd Pain ED Provider: Stephanie Cardenas Dx/Rx/DC Orders Clinical Impression: Chest pain of unknown etiology, UTI (urinary tract infection), Abdominal pain Instructions: ED Abdominal Pain Unkn Cause Fem, ED Chest Pain, Uncertain Cause, ED Bladder Infection, Female (Adult) Prescriptions: New sulfamethoxazole-trimethoprim [Bactrim DS] 800-160 mg tablet 1 tab PO BID Qty: 6 RF: 0 No Action Apple Cider Vinegar 30 ml PO DAILY RF: 0 cholecalciferol (vitamin D3) 400 UNIT capsule 400 unit PO DAILY RF: 0 omega-3 fatty acids-fish oil 1 EACH capsule 2 cap PO DAILY RF: 0 aspirin 81 MG tablet 81 mg PO DAILY@0800 Qty: 30 RF: 0 atorvastatin 20 MG tablet 20 mg PO QHS Qty: 30 RF: 0 Primary Care Provider: Ana Andrews Referrals: Ana Andrews, NONDESTRUCTIVE TESTER-C [Primary Care Provider] - Disposition Disposition: Home, self care
--- NOTE | 2021-03-26 10:57 | RAD_ITS ---
STUDY: X-RAY CHEST REASON FOR EXAM: Female, 65 years old. Chest pain TECHNIQUE: Single AP portable view of the chest. COMPARISON: Comparison is made with prior study dated 11/12/2020. FINDINGS: EKG electrodes are seen. The lungs are clear and expanded. There is no demonstrated pleural abnormality. Normal size heart. Normal mediastinum and anushka. Normal visualized pulmonary arteries. There is atherosclerotic calcification of the aortic arch with tortuosity. There are diffuse degenerative changes of the visualized thoracic spine. Normal visualized ribs, clavicles, and shoulders. Surgical clips are seen in the epigastric region. RAD/Chest 1 View (Portable) IMPRESSION: Stable examination. No acute abnormality is seen. Electronically Signed: Gee Szymanski MD at 11:30 EDT , Service support ,
--- NOTE | 2021-03-26 11:04 | CT_ITS ---
STUDY: CT ABDOMEN AND PELVIS WITHOUT CONTRAST REASON FOR EXAM: Female, 65 years old. Abdominal pain RADIATION DOSAGE (If Supplied By Facility): CTDIvol = ( 19.31 ) mGy, DLP = ( 837.76 ) mGycm TECHNIQUE: Transaxial images were obtained from the dome of the diaphragm to the symphysis pubis without oral contrast, and without intravenous contrast. Sagittal and coronal images were reconstructed. Individualized dose optimization techniques were used for this CT. COMPARISON: Comparison is made with prior study dated 10/28/2020. FINDINGS: The visualized lung bases are unremarkable. The visualized portions of the heart are within normal limits. Normal liver. There are surgical clips in the gallbladder fossa consistent with a prior cholecystectomy. Normal spleen. Normal pancreas. Normal bilateral adrenal glands. The patient is status post right nephrectomy. Normal left kidney. There is a small hiatal hernia. Normal small intestine. Normal colon. The appendix is visualized and appears normal. There is scattered atherosclerotic calcification of the abdominal aorta, without a demonstrated aneurysm. Normal inferior vena cava. Normal retroperitoneum. Normal urinary bladder. Enlarged fibroid uterus. There is a small umbilical hernia containing fat. Normal osseous structures. CT/Abdomen/Pelvis without Cont IMPRESSION: Status post right nephrectomy. Enlarged fibroid uterus. Electronically Signed: Gee Szymanski MD at 12:16 EDT , Service support ,
[2021-03-26 11:07] LABS: AST(SGOT) 13 U/L (15-37); Alanine Aminotransfer ALT/SGPT 11 U/L (13-56); Albumin, Serum 3.6 g/dL (3.2-5.0); Alkaline Phosphatase 97 U/L (45-117); Anion Gap 6 (5-15); BUN 10 mg/dL (7-18); Calcium,Total 9.1 mg/dL (8.5-10.1); Chloride 108 mmol/L (98-107); Creatinine, Serum 1.11 mg/dL (0.55-1.02); EST Glomerular Filtration Rate 52 mL/min (>60); Est Glom Filt Rate - Afr Amer 63 mL/min (>60); Estimated Creatinine Clearance 38.64 ml/min; Globulin 3.6 g/dL (2.2-4.2); Glucose 144 mg/dL (74-106); Lipase 167 U/L (73-393); Protein, Total 7.2 g/dL (6.4-8.2); Sodium Level 139 mmol/L (136-145)
[2021-03-26] MEDS: 0.9% Normal Saline 1,000 ML 150 ML IV (11:07)
[2021-03-26 11:24] VITALS: BP 127/76; PULSE 67; RESP 14; O2SAT 97
[2021-03-26 12:01] LABS: Mucous, Urine 0 SEEN /hpf (<or=2+)
[2021-03-26 12:12] LABS: Color, Urine Yellow (Yellow); Glucose, Dipstick Normal (Normal); Ketone-Dipstick Negative (Negative); Leukocyte Esterase-Dipstick 500 /ul (Negative); Nitrite-Dipstick Positive (Negative); Occult Blood-Urine 25 /ul (Negative); Protein-Dipstick Negative (Negative); Urine Bilirubin Dipstick Negative (Negative); Urine Clarity Clear (Clear); Urine Urobilinogen Normal (Normal)
[2021-03-26 12:18] LABS: Absolute Lymphocyte Count 1.23 X10^3/uL (0.83-4.51); Absolute Neutrophil Count 5.6 X10^3/uL (2.0-7.7); Basophil# 0.04 X10^3/uL; Basophil% 0.5 % (0-1); Eosinophil# 0.02 X10^3/uL; Eosinophils% 0.3 % (0-5); Hematocrit 46.1 % (37-47); Hemoglobin 14.9 g/dL (12.0-15.0); Lymphocyte # 1.23 X10^3/ul (0.83-4.51); Lymphocyte % 16.6 % (19-41); Mean Corp Hgb Conc 32.3 g/dL (32-36); Mean Corpuscular Hgb 30.9 pg (27.0-32.0); Mean Corpuscular Volume 95.6 fL (81-99); Monocyte# 0.44 X10^3/uL; Monocyte% 5.9 % (0-10); NRBC Flagged by Analyzer 0 % (0-5); Neutrophil # 5.63 X10^3/uL (2.7-7.7); Neutrophil % 76.2 % (47-70); Platelet Count 246 K/mm3 (150-450); RBC Distribution Width SD 45.2 fl (35.1-43.9); Red Blood Count 4.82 M/mm3 (4.2-5.4); White Blood Count 7.4 K/mm3 (4.4-11.0)
[2021-03-26 12:38] LABS: Bacteria 2+ /hpf (None Seen); Red Blood Cells-Urine 0-5 SEEN /hpf (0-5); Squamous Epithelial Cells - UA 0-5 SEEN /hpf (5-10); White Blood Cells 5-10 SEEN /hpf (0-5)
[2021-03-26 13:12] VITALS: BP 113/75; PULSE 58; RESP 20; O2SAT 95
[2021-03-26 14:16] LABS: D-Dimer Quantitative (DVT/PE) 0.34 FEU/ug/m (0.27-0.49)
[2021-03-26 14:35] VITALS: BP 131/72; PULSE 83; RESP 15; O2SAT 99
[2021-03-26] MEDS: Smz/Tmp Ds Tablet 1 TABLET PO (14:38)
== END 2021-03-26 14:46 | disposition home or self-care (01) ==
PROVIDERS: Emergency Provider Emergency Medicine; PCP Nurse Practitioner Family
DX: R07.9 Chest pain, unspecified (principal); N39.0 Urinary tract infection, site not specified; R10.30 Lower abdominal pain, unspecified
CPT/HCPCS: 71045; 74176; 80053; 81001; 83690; 84484; 85025; 85379; 87077; 87086; 87088; 87186; 93005; 96360; 96361; 99285; J7030; A4216

== ENCOUNTER → 2021-05-11 11:16 | Outpatient (CLI) | payer MEDICARE, OTHER, SELFPAY ==
[2021-04-20 08:50] VITALS: BMI 37.6
[2021-05-11 15:33] LABS: Erythrocyte Sedimentation Rate 19 mm/hr (0-30)
[2021-05-14 20:27] LABS: ANTINUCLEAR ANTIBODIES DIRECT Negative
[2021-05-18 14:09] LABS: Complement C3 133 mg/dL (82-167); Dilute Prothrombin Time (dPT) 39.7 sec (0.0-55.0); PTT-LA 34.1 sec (0.0-51.9); Protein C Antigen 88 % (60-150); Thrombin Time 15.4 sec (0.0-23.0); dPT Confirm Ratio 1.13 Ratio (0.00-1.40)
[2021-05-18 14:23] LABS: Complement CH50 > 60 U/mL (>41)
[2021-05-18 14:24] LABS: Anti-Cardiolipin Ab, IgA, Qn < 9 APL U/mL (0-11); Anti-Cardiolipin Ab, IgG, Qn 10 GPL U/mL (0-14); Anti-Cardiolipin Ab, IgM, Qn 12 MPL U/mL (0-12); Anti-Thrombin 3 AG, Immunol 87 % (72-124); Antithrombin 3 Function 100 % (75-135); Interpretation Comment: (.); Protein C, Functional 105 % (73-180); Protein S, Free 94 % (57-157); Protein S, Funtional 82 % (63-140); Protein S, Total 82 % (60-150)
== END ==
PROVIDERS: PCP Nurse Practitioner Family; Referring Provider Psychiatry & Neurology Neurology; Visit Provider Psychiatry & Neurology Neurology
DX: Z86.711 Personal history of pulmonary embolism (principal); Z86.73 Personal history of transient ischemic attack (TIA), and cerebral infarction without residual deficits
CPT/HCPCS: 36415; 81240; 81241; 85300; 85301; 85302; 85303; 85305; 85306; 85652; 86038; 86147; 86160; 86162; 86225; 86235

== ENCOUNTER 2023-07-06 13:03 | Emergency (ER) | payer MEDICARE, OTHER, SELFPAY ==
[2023-07-06 13:05] VITALS: BP 147/90; PULSE 66; RESP 14; TEMP 36.6; O2SAT 100; BMI 40.1
--- NOTE | 2023-07-06 13:05 | RAD_ITS ---
INDICATION: chest pain EXAMINATION/TECHNIQUE: X-RAY - XR Chest 1 View COMPARISON: 03/26/2021. FINDINGS: The lungs are clear. Tortuous and calcified thoracic aorta. The heart is not enlarged. No pleural effusion or pneumothorax. Degenerative changes of the thoracic spine. RAD/Chest 1 View (Portable) IMPRESSION: No acute radiographic abnormalities. Electronically Signed: Deejay Coyne MD at 17:17 EDT ,
--- NOTE | 2023-07-06 14:41 | EKG12_ITS ---
Test Reason : POST CP Blood Pressure : / mmHG Vent. Rate : 068 BPM Atrial Rate : 068 BPM P-R Int : 120 ms QRS Dur : 078 ms QT Int : 396 ms P-R-T Axes : 029 -13 030 degrees QTc Int : 421 ms Normal sinus rhythm Normal ECG Confirmed by LOR KING, AWILDA ([id number]), editor in chief KYLE ARCHER ([id number]) on 07/11/2023 11:31:30 AM Referred By: LAMBERTO/LUANNE Confirmed By:FABIANA HOROWITZ MD
[2023-07-06 15:10] LABS: Absolute Lymphocyte Count 1.78 X10^3/uL (0.83-4.51); Absolute Neutrophil Count 5.1 X10^3/uL (2.0-7.7); Basophil# 0.05 X10^3/uL; Basophil% 0.7 % (0-1); Eosinophil# 0.11 X10^3/uL; Eosinophils% 1.5 % (0-5); Hemoglobin 13.9 g/dL (12.0-15.0); Lymphocyte # 1.78 X10^3/ul (0.83-4.51); Lymphocyte % 23.5 % (19-41); Mean Corp Hgb Conc 33.1 g/dL (32-36); Mean Corpuscular Hgb 31.5 pg (27.0-32.0); Mean Corpuscular Volume 95.2 fL (81-99); Mean Platelet Vol. 9.6 fl (6.2-12.0); Monocyte# 0.54 X10^3/uL; Monocyte% 7.1 % (0-10); NRBC Flagged by Analyzer 0 % (0-5); Neutrophil # 5.07 X10^3/uL (2.7-7.7); Neutrophil % 66.9 % (47-70); Platelet Count 201 K/mm3 (150-450); RBC Distribution Width CV 12.9 % (11.6-14.6); RBC Distribution Width SD 45.4 fl (35.1-43.9); Red Blood Count 4.41 M/mm3 (4.2-5.4); White Blood Count 7.6 K/mm3 (4.4-11.0)
--- NOTE | 2023-07-06 15:22 | ED.VIS.CHEST ---
HPI History of Present Illness Chief Complaint: Chest Pain Informant: patient Onset/Context/Timing Onset: Weeks (2) Activity at onset: sudden Timing: Intermittent and Lasts (30-60 minutes) Quality: Positive for Dull Location: Substernal, Right Parasternal, Left Parasternal, Right Chest, Left Chest and - (Right shoulder and right arm) Worsened By: Movement of Arm and Movement of Torso Relieved By: Nothing Associated Symptoms: Positive for Nausea and Lightheadedness; Negative for Vomiting, Diaphoresis, Dyspnea, Cough, Fever, Acid Reflux or Palpitations Narrative Narrative: Patient presents with chest pain that has been intermittent for the past 2 weeks. Patient states it has been getting worse over the past couple days. Patient states that when it comes on it is approximately 30 to 60 minutes. Patient describes the pain as dull and sore. Patient states the pain is diffuse across her chest. Patient states the pain radiates into her right shoulder and right arm. Patient states that sometimes it is worse with movement of her arms and chest. Patient states nothing seems to help with the pain. Patient admits to some nausea and lightheadedness. Patient denies any vomiting or diaphoresis. Patient denies any shortness of breath or cough. CVD Risk Factors: Negative for Hypertension, Diabetes, Hypercholesterolemia, Family History 1' </=55 or Smoking PE Risk Factors: Positive for Prior DVT or PE and Cancer; Negative for Recent Travel/Surgery, Recent Immobilization or OCP + Smoking + >/=35 PFSH PFSH Medical History Anxiety DVT (deep venous thrombosis) FHx: kidney cancer Nodule of kidney Home Medications cholecalciferol (vitamin D3) 10 mcg (400 unit) capsule 400 unit PO DAILY SUPPLEMENT 11/12/20 [History Last Taken 11/12/20] aspirin 81 mg tablet,delayed release 81 mg PO DAILY@0800 #30 tabs 11/13/20 [Rx Last Taken Unknown] rivaroxaban 20 mg tablet (Xarelto) 20 mg PO DAILY 02/24/22 [History Last Taken Unknown] Allergy/AdvReac Type Severity Reaction Status Date / Time No Known Allergies Allergy Verified 07/06/23 13:04 Family History Grandmother CVA (cerebral vascular accident) Surgical History H/O right nephrectomy Social History Smoking Status: Never smoker Electronic Cigarette Use: not used second hand exposure: No alcohol intake: never substance use type: does not use ROS ROS ED Constitutional Constitutional ED: Denies chills or fever(s) Eyes Eyes: Denies blurry vision or change in vision ENT ENT ED: Reports rhinorrhea; Denies sore throat Cardiovascular Cardiovascular: Reports chest pain; Denies palpitations Respiratory/Chest Respiratory/Chest: Denies cough or dyspnea Gastrointestinal Gastrointestinal: Reports nausea; Denies abdominal pain or vomiting Genitourinary Genitourinary ED: Denies dysuria or hematuria Musculoskeletal Musculoskeletal: Reports neck pain; Denies back pain Integumentary Denies abscess or rash Neurologic Neurologic: Reports headache(s); Denies weakness Allergic/Immunologic Allergic/Immunologic ED: Denies mouth swelling or urticaria EXAM Physical Exam Const Vital Signs: 07/06/23 13:05 07/06/23 15:05 07/06/23 17:05 Temperature 98 F Temperature Source Temporal Pulse Rate 66 66 Respiratory Rate 14 13 Blood Pressure 147/90 H 145/94 H Blood Pressure Mean 109 111 Pulse Ox 100 Oxygen Delivery Method Room Air Room Air Room Air 07/06/23 19:19 Temperature Temperature Source Pulse Rate 65 Respiratory Rate 15 Blood Pressure 139/82 H Blood Pressure Mean 101 Pulse Ox Oxygen Delivery Method Room Air Heart Score History: Slightly/Non-Suspicious ECG: Normal Age: >/= 65 years Risk Factors: No Risk Factors Troponin: </= Normal Limit Score: 2 MDM MDM MDM Narrative Medical decision making narrative: Differential diagnosis includes cardiac dysrhythmia, cardiac ischemia, pulmonary embolism, pneumonia, pneumothorax, GERD, anxiety, and musculoskeletal pain. EKG will be obtained to assess for cardiac dysrhythmia and cardiac ischemia. Chest x-ray will be obtained to assess for pneumonia and pneumothorax. CBC will be obtained to assess for leukocytosis and anemia. Basic metabolic profile will be obtained to assess for electrolyte abnormality and renal function. High-sensitivity troponin will be obtained to assess for cardiac ischemia. 2-hour repeat high-sensitivity troponin will be obtained to assess for ongoing cardiac ischemia. PT with INR and PTT will be obtained to assess for coagulopathy. D-dimer will be obtained to assess for pulmonary embolism. Lab Data Attestation: I reviewed the patient's lab results. Lab results narrative: CBC was reviewed and was within normal limits. Basic metabolic profile was reviewed and showed a slightly elevated creatinine 1.09. The remainder was within normal limits. D-dimer was reviewed and was elevated at 1.27. High-sensitivity troponin was reviewed and was normal at 6. 2-hour repeat high-sensitivity troponin was reviewed and was normal at 6. Labs: Laboratory Results - last 24 hr 07/06/23 07/06/23 15:00 17:24 WBC 7.6 RBC 4.41 Hgb 13.9 Hct 42.0 MCV 95.2 MCH 31.5 MCHC 33.1 RDW Std Deviation 45.4 H RDW Coeff of Yamileth 12.9 Plt Count 201 MPV 9.6 Immature Gran % (Auto) 0.300 Neut % (Auto) 66.9 Lymph % (Auto) 23.5 [place] % (Auto) 7.1 Eos % (Auto) 1.5 Baso % (Auto) 0.7 Absolute Neuts (auto) 5.1 Absolute Lymphs (auto) 1.78 Nucleated RBC % 0 PT 13.1 INR 1.0 APTT 26.5 D-Dimer Quant (PE/DVT) 1.27 H* Sodium 134 L Potassium 4.9 Chloride 105 Carbon Dioxide 25.0 Anion Gap 4 L BUN 15 Creatinine 1.09 H Estim Creat Clear Calc 37.79 Est GFR (MDRD) Af Amer 64 Est GFR (MDRD) Non-Af 53 L BUN/Creatinine Ratio 13.8 Glucose 100 Calcium 9.7 Troponin I High Sens 6 6 Radiography Diagnostic Testing: Clinical Impression(s) from Imaging Studies Chest X-Ray 07/06/23 13:05 IMPRESSION: No acute radiographic abnormalities. Electronically Signed: Deejay Coyne MD at 17:17 EDT , Chest CTA 07/06/23 16:43 IMPRESSION: No acute abnormalities in the chest. Specifically, no evidence of acute pulmonary emboli to the segmental level. Electronically Signed: Deejay Coyne MD at 18:41 EDT , Portable 1 view chest x-ray was obtained. On my independent interpretation, lung landa are clear. There is normal cardiac silhouette. Bony thorax is normal. There is no acute process noted. Radiologist also interpreted the x-ray and agrees. Because of the elevated D-dimer, CTA of the chest was obtained. There is no evidence of pulmonary embolism or aortic dissection. There is no infiltrate noted. This was interpreted by the radiologist and was also independently reviewed by myself. EKG Initial EKG: Attestation: I personally reviewed and interpreted this EKG as follows: Interpretation: Sinus Rhythm (68) and No Acute Injury Pattern Comments: EKG was obtained. On my independent interpretation, it showed a normal sinus rhythm with a rate of 68. [place] interval, QRS interval, and QTc intervals were all normal. [place] was normal. There are no acute ST or T wave changes. Prior EKG tracings: available for review Prior: Unchanged (03/26/2021) Treatment and Re-Evaluation :: Patient was given aspirin. Patient was given IV fluids. Patient is feeling better on reevaluation. Patient was advised of her findings. Patient has a HEART score of 2. Patient was advised that this is low risk for acute cardiac event. Patient was instructed to follow-up with her primary care physician in 5 to 7 days. Patient and spouse understood and were agreeable with the plan. All questions were answered. Discharge Plan Triage Chief Complaint: Chest Pain ED Provider: Akbar Orta Dx/Rx/DC Orders Clinical Impression: Elevated blood pressure reading, Chest pain of unknown etiology Instructions: ED Chest Pain, Noncardiac (Child) Prescriptions: No Action Xarelto 20 mg tablet 20 mg PO DAILY Rx Instructions: must administer with evening meal cholecalciferol (vitamin D3) 400 UNIT capsule 400 unit PO DAILY aspirin 81 MG tablet 81 mg PO DAILY@0800 Qty: 30 0RF Primary Care Provider: ALEXANDRIA ADAMS Referrals: ALEXANDRIA ADAMS CRNP [Primary Care Provider] - 5-7 Days Disposition Disposition: Home, Self Care
[2023-07-06 15:27] LABS: Partial Thromboplast Time 26.5 Seconds (24.1-36.2); Prothrombin Time (Protime)PT. 13.1 SECONDS (11.7-14.9)
[2023-07-06 15:28] LABS: Anion Gap 4 (5-15); BUN 15 mg/dL (7-18); BUN/Creat Ratio 13.8 RATIO (10-20); Calcium,Total 9.7 mg/dL (8.5-10.1); Chloride 105 mmol/L (98-107); Creatinine, Serum 1.09 mg/dL (0.55-1.02); EST Glomerular Filtration Rate 53 mL/min (>60); Est Glom Filt Rate - Afr Amer 64 mL/min (>60); Estimated Creatinine Clearance 37.79 ml/min; Glucose 100 mg/dL (74-106); Potassium 4.9 mmol/L (3.5-5.1); Sodium Level 134 mmol/L (136-145); Troponin-I HS (w/2H Reflex) 6 pg/mL (3.0-54.0)
[2023-07-06] MEDS: Aspirin 81 MG TAB.CHEW 324 MG PO (15:43)
[2023-07-06 16:41] LABS: D-Dimer Quantitative (DVT/PE) 1.27 FEU/ug/m (0.27-0.49)
--- NOTE | 2023-07-06 16:43 | CT_ITS ---
INDICATION: Elevated D-dimer EXAMINATION: CTA Chest WO/W Contrast Injection TECHNIQUE: Helically acquired images were obtained of the chest following administration of IV contrast. A radiation dose optimization technique was used for this scan. 3D postprocessing images including MIPS were reviewed. IV Contrast dosage and agent: IV 100mL [id number] COMPARISON: None. FINDINGS: Lungs: Unremarkable Mediastinum: The heart is mildly enlarged. No mediastinal, hilar or axillary adenopathy. Mild aortic arch and coronary artery calcifications. No obvious filling defect seen within the visualized pulmonary arteries. Pleura: Unremarkable Bones/Soft tissues: There are diffuse degenerative changes of the spine. Upper abdomen: No visualized abnormalities in the upper abdomen. CT/CTA Chest W/WO Contrast IMPRESSION: No acute abnormalities in the chest. Specifically, no evidence of acute pulmonary emboli to the segmental level. Electronically Signed: Deejay Coyne MD at 18:41 EDT ,
[2023-07-06] MEDS: 0.9% Normal Saline (1000mL) 1,000 ML 1000 ML IV (16:57)
[2023-07-06 17:05] VITALS: BP 145/94; PULSE 66; RESP 13
[2023-07-06 17:07] LABS: Reflex Troponin-HS? (from REC) Y
[2023-07-06 17:53] LABS: Troponin-I HS 6 pg/mL (3.0-54.0)
[2023-07-06 19:19] VITALS: BP 139/82; PULSE 65; RESP 15
[2023-07-06 20:06] VITALS: BP 123/101; PULSE 60; RESP 17
== END 2023-07-06 20:26 | disposition home or self-care (01) ==
PROVIDERS: Emergency Provider Emergency Medicine; PCP Nurse Practitioner Adult Health; Visit Provider Emergency Medicine
DX: R07.9 Chest pain, unspecified (principal); R03.0 Elevated blood-pressure reading, without diagnosis of hypertension; Z86.718 Personal history of other venous thrombosis and embolism; Z79.01 Long term (current) use of anticoagulants; Z90.5 Acquired absence of kidney
CPT/HCPCS: 36415; 71045; 71275; 80048; 84484; 85025; 85379; 85610; 85730; 93005; 96360; 96361; 99285; J7030; Q9967; A4216